=== PATIENT | male | born 1985 | race African-American/Black ===

== ENCOUNTER 2018-12-29 20:35 | Emergency (ER) | payer OTHER ==
[~2018-12-29] VITALS: Ht 182.9 cm; Wt 102.1 kg
[2018-12-29 21:07] VITALS: BP 144/94
[2018-12-29] MEDS ORDERED: AZITHROMYCIN 250 MG TABLET PO ONE (22:00)
[2018-12-29] MEDS ORDERED: CEFTRIAXONE 500 MG VIAL IM ONE (22:00)
[2018-12-29] MEDS ORDERED: AZITHROMYCIN 250 MG TABLET ONE (22:01)
[2018-12-29] MEDS ORDERED: LIDOCAINE /MPF 1% VIAL 5 ML VIAL ONE (22:01)
[2018-12-29] MEDS ORDERED: CEFTRIAXONE 500 MG VIAL ONE (22:01)
== END 2018-12-29 22:13 | disposition home or self-care (01) ==
LOC: ER 20:35
DX: A64 Unspecified sexually transmitted disease (principal); J45.909 Unspecified asthma, uncomplicated; Z60.2 Problems related to living alone; Z86.19 Personal history of other infectious and parasitic diseases
CPT/HCPCS: 96372; 99283; A4606; J0696; J3490

== ENCOUNTER 2019-01-07 09:16 | Emergency (ER) | payer OTHER ==
[~2019-01-07] VITALS: Ht 182.9 cm; Wt 104.3 kg
[2019-01-07 09:16] VITALS: BP 166/82
== END 2019-01-07 09:38 | disposition home or self-care (01) ==
LOC: ER 09:20
DX: N34.2 Other urethritis (principal); J45.909 Unspecified asthma, uncomplicated; A64 Unspecified sexually transmitted disease; Z60.2 Problems related to living alone